=== PATIENT | male | born 1960 | race Caucasian/White ===

== ENCOUNTER 2016-07-01 | Outpatient (CLI) | payer OTHER | END 2016-07-01 14:29 | disposition critical access hospital (66) | DX: I46.9 Cardiac arrest, cause unspecified (principal) | CPT/HCPCS: A0425; A0433 ==

== ENCOUNTER 2016-07-01 14:40 | Emergency (ER) | payer OTHER ==
[2016-07-01] MEDS ORDERED: IPRATROPIUM/ALBUTEROL 3 ML NEB INH STA ×3 (14:51→21:28)
[2016-07-01] MEDS ORDERED: IPRATROPIUM/ALBUTEROL 3 ML NEB INH ONE ×2 (14:51→20:39)
[2016-07-01] MEDS ORDERED: LORazepam 2 MG/ML SYRINGE ONE ×3 (15:19→19:10)
[2016-07-01] MEDS ORDERED: LORazepam 2 MG/ML SYRINGE IVP STA ×3 (15:19→19:09)
[2016-07-01] MEDS ORDERED: MIDAZOLAM 2 MG/2 ML VIAL IVP STA ×4 (15:27→19:02)
[2016-07-01] MEDS ORDERED: VECURONIUM 10 MG VIAL IVP STA ×4 (15:27→18:31)
[2016-07-01] MEDS ORDERED: MIDAZOLAM 2 MG/2 ML VIAL ONE ×4 (15:28→18:20)
[2016-07-01] MEDS ORDERED: VECURONIUM 10 MG VIAL ONE ×4 (15:28→18:32)
[2016-07-01] MEDS ORDERED: cefTRIAXone 1 GM in SODIUM CHLORIDE 0.9% MINIBAG 100 ML IV STA (16:33)
[2016-07-01] MEDS ORDERED: VECURONIUM 100 MG in SODIUM CHLORIDE 0.9% 100ML 100 ML IVP SCH ×2 (18:00→19:00)
[2016-07-01] MEDS ORDERED: WATER FOR INJECTION,STERILE 10 ML ONE (18:32)
[2016-07-01] MEDS ORDERED: cefTRIAXone 1 GM VIAL ONE (18:53)
[2016-07-01] MEDS ORDERED: IOPAMIDOL-300 100 ML VIAL IVP ONE (18:55)
[2016-07-01] MEDS ORDERED: fentaNYL 100 MCG/2 ML VIAL IVP STA ×3 (19:20→22:14)
[2016-07-01] MEDS ORDERED: fentaNYL 100 MCG/2 ML VIAL ONE ×3 (19:21→22:14)
[2016-07-01] MEDS ORDERED: LORazepam 100MG/100ML 100 ML IV SCH (20:00)
[2016-07-01] MEDS ORDERED: ASPIRIN CHEW 81 MG TABLET NG STA (21:04)
[2016-07-01] MEDS ORDERED: ACETAMINOPHEN 325 MG TABLET PO ONE (21:23)
[2016-07-01] MEDS ORDERED: ASPIRIN CHEW 81 MG TABLET ONE (21:23)
[2016-07-01] MEDS ORDERED: ACETAMINOPHEN 325 MG TABLET PO STA (21:25)
[2016-07-01] MEDS ORDERED: LEVALBUTEROL 1.25 MG INH STA (21:29)
[2016-07-01] MEDS ORDERED: IPRATROPIUM 0.2 MG/ML NEB INH ONE (21:30)
[2016-07-01] MEDS ORDERED: IPRATROPIUM 0.2 MG/ML NEB INH STA (21:30)
[2016-07-01] MEDS ORDERED: LEVALBUTEROL 1.25 MG INH ONE (21:30)
== END 2016-07-01 22:30 | disposition short-term general hospital (02) ==
DX: I46.9 Cardiac arrest, cause unspecified (principal); R09.2 Respiratory arrest; J44.1 Chronic obstructive pulmonary disease with (acute) exacerbation; N39.0 Urinary tract infection, site not specified; I10 Essential (primary) hypertension; Z79.82 Long term (current) use of aspirin; Z87.891 Personal history of nicotine dependence
CPT/HCPCS: 36415; 36600; 51702; 71010; 71275; 74000; 80053; 80306; 81001; 82803; 83605; 83690; 83735; 83880; 84100; 84484; 85025; 85379; 85610; 85730; 87040; 87086; 93005; 93010; 94640; 94770; 96374; 96375; 96376; 99291; 99292; A9270; J2060; J7620; Q9967